=== PATIENT | female | born 1945 | race Caucasian/White ===

== ENCOUNTER → 2016-12-15 | Outpatient (CLI) | payer OTHER ==
[~2016-12-15] MED LIST: GADOBUTROL 10 ML VIAL IVP ONE
== END ==
LOC: FIMAGING 08:00
PROVIDERS: ATTEND Internal Medicine Gastroenterology
DX: K82.4 Cholesterolosis of gallbladder (principal); K86.2 Cyst of pancreas; D17.71 Benign lipomatous neoplasm of kidney
CPT/HCPCS: 74183; A9585

== ENCOUNTER → 2017-04-23 | Outpatient (CLI) | payer OTHER | LOC: FIMAGING 12:34 | PROVIDERS: ATTEND Internal Medicine | DX: Z13.820 Encounter for screening for osteoporosis (principal); M81.0 Age-related osteoporosis without current pathological fracture; Z78.0 Asymptomatic menopausal state; Z85.3 Personal history of malignant neoplasm of breast ==

== ENCOUNTER 2017-05-08 18:50 | Emergency (ER) | payer OTHER ==
--- NOTE | 2017-05-08 19:28 | CPEKG ---
Heart Rate: 81 RR Interval: 741 P-R Interval: 148 QRSD Interval: 96 QT Interval: 388 QTC Interval: 451 P Bronte: 74 QRS Bronte: 55 T Wave Bronte: 66 EKG Severity - ABNORMAL ECG - EKG Impression: SINUS RHYTHM EKG Impression: PROBABLE LEFT ATRIAL ABNORMALITY EKG Impression: ABNORMAL T, CONSIDER ISCHEMIA, ANTERIOR LEADS Electronically Signed By: Karie Sellers 08-May-2017 21:59:19
[2017-05-08] MEDS ORDERED: PROMETHAZINE HCL 25 MG/ML INJ IVP ONE (19:37)
[2017-05-08 19:42] LABS: % IMMATURE GRANULYOCYTES 0.2 % (0.0-1.1); ABSOLUTE IMMATURE GRANULOCYTES 0.01 10^3/uL (0.00-0.10); ADD DIFF? NO; ADD MORPH? NO; ADD SCAN? NO; ATYPICAL LYMPHOCYTE FLAG 0 (0-99); FRAGMENT RBC FLAG 0 (0-99); HEMOGLOBIN 14.9 g/dL (12.6-16.3); LEFT SHIFT FLG 0 (0-99); LIPEMIA HEMOLYSIS FLAG 90 (0-99); MEAN CELL HEMOGLOBIN 30.7 pg (27.9-34.1); MEAN CELL HEMOGLOBIN CONCENTR. 35.5 g/dL (32.4-36.7); MEAN CELL VOLUME 86.4 fL (81.5-99.8); MEAN PLATELET VOLUME 9.9 fL (8.7-11.7); PLATELET CLUMPS FLAG 0 (0-99); PLATELET COUNT 228 10^3/uL (150-400); RED BLOOD CELL COUNT 4.86 10^6/uL (4.18-5.33); RED CELL DISTRIBUTION WIDTH 12.8 % (11.5-15.2)
[2017-05-08 19:57] LABS: ALANINE AMINOTRANSFERASE 38 IU/L (9-52); ALKALINE PHOSPHATASE 59 IU/L (38-126); ANION GAP 11 mEq/L (8-16); ASPARTATE AMINOTRANSFERASE 26 IU/L (14-46); BILIRUBIN,TOTAL 0.6 mg/dL (0.1-1.4); BILIRUBIN-CONJUGATED 0.2 mg/dL (0.0-0.5); BILIRUBIN-UNCONJUGATED 0.4 mg/dL (0.0-1.1); CALCIUM 9.7 mg/dL (8.5-10.4); CARBON DIOXIDE 26 mEq/l (22-31); CHLORIDE 97 mEq/L (97-110); CREATININE 0.7 mg/dL (0.6-1.0); GLOMERULAR FILTRATION RATE > 60; GLUCOSE 128 mg/dL (70-100); POTASSIUM 3.5 mEq/L (3.5-5.2); SODIUM 134 mEq/L (134-144); TOTAL PROTEIN 6.5 g/dL (6.3-8.2)
[2017-05-08 20:07] LABS: TROPONIN I < 0.012 ng/mL (0.000-0.034)
[2017-05-08] MEDS ORDERED: METOCLOPRAMIDE 10 MG/2 ML VIAL IVP ONE (20:54)
[2017-05-08 21:15] VITALS: RESP 16
--- NOTE | 2017-05-08 21:48 | EDPHY ---
H & P Stated Complaint: nausea x 1 day, no pain, been taking ibu for dental work - Personal History Current Tetanus/Diphtheria Vaccine: Unsure Current Tetanus Diphtheria and Acellular Pertussis (TDAP): Unsure Tetanus Vaccine Date: 2011 - Medical/Surgical History Hx Asthma: No Hx Chronic Respiratory Disease: No Hx Diabetes: No Hx Cardiac Disease: Yes Hx Renal Disease: No Hx Cirrhosis: No Hx Alcoholism: No Hx HIV/AIDS: No Hx Splenectomy or Spleen Trauma: No Other PMH: PSH: BILAT MASTECTOMY,HYST. PMH: MIGRAINES,AFLUTTER WITH AFIB ablation, BREAST CA. trigeminal neuralgia - Social History Smoking Status: Never smoked Time Seen by Provider: 05/08/17 19:28 HPI/ROS: Chief complaint: Nausea History of present illness: This is a 72-year-old female who presents to the emergency department for evaluation of nausea. Patient believes this is secondary to the use of ibuprofen. Patient had dental work performed last week. 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 She states she believes this has made her extremely nauseated. She has used Zofran at home which has not resolved the problem. She denies associated signs or symptoms: No actual vomiting, no associated pain specifically no abdominal pain, no diarrhea or constipation, no reported bright red blood or dark stools, no fever. (Abilio Nova) - Physical Exam Exam: General Appearance: Alert, nontoxic. Eyes: Pupils equal and round no pallor or injection. ENT, Mouth: Mucous membranes moist. Respiratory: There are no retractions, lungs are clear to auscultation. Cardiovascular: Regular rate and rhythm. Gastrointestinal: Abdomen is soft and non tender, no masses, bowel sounds normal. Neurological: Alert and oriented. Strength and sensation intact and symmetrical. Skin: Warm and dry, no rashes. Musculoskeletal: Neck is supple non tender. Extremities are symmetrical, full range of motion. Psychiatric: Patient is oriented X 3, there is no agitation. (Abilio Nova) Constitutional: Initial Vital Signs Temperature (C) 37.3 C 05/08/17 18:54 Heart Rate 94 05/08/17 18:54 Respiratory Rate 18 05/08/17 18:54 Blood Pressure 179/101 H 05/08/17 18:54 O2 Sat (%) 95 05/08/17 18:54 O2 Delivery Mode Room Air Allergies/Adverse Reactions: hydrocodone bitartrate [From Vicodin] Allergy (Unknown, Verified 05/21/12 16:16) Vomiting cyclosporine [From Restasis] Allergy (Verified 02/22/16 11:13) fentanyl Allergy (Verified 07/01/14 15:44) Other-Enter Comments methylprednisolone Allergy (Verified 07/01/14 07:33) metoprolol Allergy (Verified 02/22/16 11:13) oxcarbazepine [From Trileptal] Allergy (Verified 02/22/16 11:13) tramadol Allergy (Verified 02/22/16 11:13) Home Medications: Medication Instructions Recorded Atorvastatin Calcium [Lipitor 10 10 mg PO HS 07/05/12 mg (*)] Dicyclomine [Bentyl 20 MG (*)] 20 mg PO QID PRN 07/05/12 Cholecalciferol Vit D3 [Vitamin D3 1,000 units PO DAILY 03/08/14 (*)] Azelaic Acid [Azelex] 1 hannah TP BID 06/14/14 ZOLMitriptan [Zomig 2.5MG (*)] 5 mg PO DAILY PRN 07/01/14 Apixaban [Eliquis] 5 mg PO BID #60 tab 07/04/14 Clonazepam 0.125 mg 02/22/16 Nexium 40 mg 02/22/16 Tylenol 500 mg 02/22/16 Medical Decision Making ED Course/Re-evaluation: Patient is discussed with my secondary supervising physician Dr. Karie Sellers. Patient presents to the emergency department for nausea. This is after using ibuprofen regularly after dental work. She is nontoxic. Afebrile and vital signs are stable. Abdominal exam is benign. Blood studies unremarkable. She initially treated with Phenergan and Reglan and reports improvement in symptoms. She is comfortable being discharged home. She is asked to follow up with her primary care doctor for recheck. She is asked to refrain from using ibuprofen or other NSAIDs. Return precautions are given. Patient voiced understanding and agreement with plan. (Abilio Nova) The patient was evaluated and managed by the physician senior administrative assistant. I have reviewed this chart and I agree with the findings and plan of care as documented , as indicated by my signature. I am the secondary supervising physician. ( Karie Sellers) - Data Points Laboratory Results: Laboratory Results 05/08/17 19:30 05/08/17 19:30 Medications Given: Discontinued Medications Metoclopramide HCl (Reglan Injection) 5 mg IVP EDNOW ONE Stop: 05/08/17 20:55 Last Admin: 05/08/17 21:06 Dose: 5 mg Promethazine HCl (Phenergan) 6.25 mg IVP EDNOW ONE Stop: 05/08/17 19:38 Last Admin: 05/08/17 19:48 Dose: 6.25 mg Departure - Departure Disposition: Home, Routine, Self-Care Clinical Impression: Nausea Condition: Good Instructions: Acute Nausea and Vomiting (ED) Additional Instructions: Follow-up with her primary care doctor this week for recheck Discontinue the use of ibuprofen If symptoms worsen or new symptoms develop return to the emergency room for recheck Referrals: Carlos Trujillo MD [Primary Care Provider] - As per Instructions
[2017-05-08 22:11] VITALS: BP 131/74; PULSE 69; TEMP 97.9; O2SAT 96
== END 2017-05-08 22:11 | disposition home or self-care (01) ==
DX: R11.0 Nausea (principal); Z85.3 Personal history of malignant neoplasm of breast
CPT/HCPCS: 93005; 96374; 96375; 99284; J2550; J2765

== ENCOUNTER → 2017-11-11 | Outpatient (CLI) | payer OTHER | LOC: BHLMT 13:15 | PROVIDERS: ATTEND Internal Medicine Interventional Cardiology | DX: R07.9 Chest pain, unspecified (principal) | CPT/HCPCS: 93017-PO; 93350-PO ==

== ENCOUNTER → 2017-12-17 | Outpatient (CLI) | payer OTHER | LOC: FIMAGING 07:56 | PROVIDERS: ATTEND Internal Medicine Gastroenterology | DX: K82.4 Cholesterolosis of gallbladder (principal); D30.01 Benign neoplasm of right kidney; K86.2 Cyst of pancreas ==

== ENCOUNTER 2018-02-15 22:38 | Emergency (ER) | payer OTHER ==
[2018-02-15] MEDS ORDERED: NS 1,000 ML IV ONE (23:02)
[2018-02-15] MEDS ORDERED: METOCLOPRAMIDE 10 MG/2 ML VIAL IVP ONE (23:03)
--- NOTE | 2018-02-15 23:05 | EDPHY ---
H & P Stated Complaint: pos reaction to Bactrim, nausea since this AM Time Seen by Provider: 02/15/18 22:53 HPI/ROS: Chief Complaint: Nausea, shaking HPI: 72-year-old woman was diagnosed with a urinary tract infection at urgent care this morning and started on Bactrim. Patient states she has been having urinary urgency and frequency for the last 2 days. Patient states that after she took her 1st dose of Bactrim this morning she felt nauseated and a little shaky. She did take some Zofran this afternoon with some relief. She did take her 2nd dose of Bactrim tonight and afterwards began feeling again quite shaky and nauseated. No fevers or chills. She did take a 2nd dose of Zofran at 9:30 a.m.. She does have a history of intolerance to a lot of medications in the past. No vomiting. No chest pain or shortness of breath. No palpitations. Is complaining of a mild headache. She has had similar reactions to other medications. ROS: 10 point Review of Systems is negative except as noted in the HPI. Social History: No smoking, no alcohol, no recreational drug use Family History: non-contributory Physical Exam: Vital signs: Heart rate 99, blood pressure 145/95, respiratory 18, oxygen saturations 94%, temperature 36.8 Gen: Awake, Alert, No Distress HEENT: Nose: no rhinorrhea Eyes: PERRLA, EOMI Mouth: Moist mucosa Neck: Supple, no JVD Chest: nontender, lungs clear to auscultation Heart: S1, S2 normal, no murmur Abd: Soft, non-tender, no guarding Back: no CVA tenderness, no midline tenderness Ext: no edema, non-tender Skin: no rash Neuro: CN II-XII intact, Sensation grossly intact, Strength 5/5 in bilateral upper and lower extremities - Personal History Current Tetanus/Diphtheria Vaccine: Yes Tetanus Vaccine Date: 2011 - Medical/Surgical History Hx Asthma: No Hx Chronic Respiratory Disease: No Hx Diabetes: No Hx Cardiac Disease: Yes Hx Renal Disease: No Hx Cirrhosis: No Hx Alcoholism: No Hx HIV/AIDS: No Hx Splenectomy or Spleen Trauma: No Other PMH: PSH: BILAT MASTECTOMY,HYST. PMH: MIGRAINES,AFLUTTER WITH AFIB ablation, BREAST CA. trigeminal neuralgia - Social History Smoking Status: Never smoked Constitutional: Initial Vital Signs Temperature (C) 36.8 C 02/15/18 22:41 Heart Rate 99 02/15/18 22:41 Respiratory Rate 18 02/15/18 22:41 Blood Pressure 145/95 H 02/15/18 22:41 O2 Sat (%) 94 02/15/18 22:41 O2 Delivery Mode Room Air Allergies/Adverse Reactions: hydrocodone bitartrate [From Vicodin] Allergy (Unknown, Verified 02/15/18 22:45) Vomiting cyclosporine [From Restasis] Allergy (Verified 02/15/18 22:45) fentanyl Allergy (Verified 02/15/18 22:45) Other-Enter Comments methylprednisolone Allergy (Verified 02/15/18 22:45) metoprolol Allergy (Verified 02/15/18 22:45) oxcarbazepine [From Trileptal] Allergy (Verified 02/15/18 22:45) tramadol Allergy (Verified 02/15/18 22:45) Home Medications: Medication Instructions Recorded Atorvastatin Calcium [Lipitor 10 10 mg PO HS 07/05/12 mg (*)] Dicyclomine [Bentyl 20 MG (*)] 20 mg PO QID PRN 07/05/12 Cholecalciferol Vit D3 [Vitamin D3 1,000 units PO DAILY 03/08/14 (*)] Azelaic Acid [Azelex] 1 hannah TP BID 06/14/14 ZOLMitriptan [Zomig 2.5MG (*)] 5 mg PO DAILY PRN 07/01/14 Apixaban [Eliquis] 5 mg PO BID #60 tab 07/04/14 Nexium 40 mg 02/22/16 Tylenol 500 mg 02/22/16 Cephalexin [Keflex (*)] 500 mg PO Q6H #20 cap 02/16/18 Medical Decision Making ED Course/Re-evaluation: Patient's condition has not changed. She does not wish to stay in the emergency depart for further evaluation. CBC is not come back yet but she does not wish to wait. She is afebrile. She has a benign exam. Symptoms are consistent with medication intolerance. She has been encouraged to return for any concerns. I will switch her to Keflex. She will otherwise follow up with primary care physician. - Data Points Laboratory Results: Laboratory Results 02/15/18 23:10 02/15/18 23:10 02/15/18 02/15/18 23:10 23:10 WBC REJ RBC TNP Hgb TNP Hct TNP MCV TNP MCH TNP MCHC TNP RDW TNP Plt Count TNP MPV TNP Neut % (Auto) TNP Lymph % (Auto) TNP Roberts % (Auto) TNP Eos % (Auto) TNP Baso % (Auto) TNP Nucleat RBC Rel Count TNP Absolute Neuts (auto) TNP Absolute Lymphs (auto) TNP Absolute Monos (auto) TNP Absolute Eos (auto) TNP Absolute Basos (auto) TNP Absolute Nucleated RBC TNP Immature Gran % TNP Immature Gran # TNP Sodium 128 mEq/L L mEq/L (135-145) Potassium 3.4 mEq/L mEq/L (3.3-5.0) Chloride 92 mEq/L L mEq/L (97-110) Carbon Dioxide 23 mEq/l mEq/l (22-31) Anion Gap 13 mEq/L mEq/L (8-16) BUN 12 mg/dL mg/dL (7-23) Creatinine 0.5 mg/dL L mg/dL (0.6-1.0) Estimated GFR > 60 Glucose 137 mg/dL H mg/dL (70-100) Calcium 9.0 mg/dL mg/dL (8.5-10.4) Medications Given: Discontinued Medications Sodium Chloride (Ns) 1,000 mls @ 0 mls/hr IV ONCE ONE; Wide Open PRN Reason: Protocol Stop: 02/15/18 23:03 Last Admin: 02/15/18 23:24 Dose: 1,000 mls Metoclopramide HCl (Reglan Injection) 10 mg IVP EDNOW ONE Stop: 02/15/18 23:04 Last Admin: 02/15/18 23:24 Dose: 10 mg Departure - Departure Disposition: Home, Routine, Self-Care Clinical Impression: Hyponatremia, UTI (urinary tract infection) Condition: Good Instructions: Urinary Tract Infection in Women (ED), Hyponatremia (ED) Additional Instructions: Follow up with her primary care physician in 2-3 days for further evaluation. Return to the emergency department for increasing nausea, vomiting, abdominal pain, fevers, chills, confusion, or any other concerns. Referrals: Carlos Trujillo MD [Primary Care Provider] - As per Instructions Prescriptions: Cephalexin [Keflex (*)] 500 mg PO Q6H #20 cap
[2018-02-16 00:38] VITALS: BP 128/82
== END 2018-02-16 00:39 | disposition home or self-care (01) ==
DX: N39.0 Urinary tract infection, site not specified (principal); E87.1 Hypo-osmolality and hyponatremia; E86.9 Volume depletion, unspecified; Z85.3 Personal history of malignant neoplasm of breast
CPT/HCPCS: 96361; 96374; 99284; J2765

== ENCOUNTER 2018-12-20 15:42 | Emergency (ER) | payer OTHER | END 2018-12-20 16:52 | disposition home or self-care (01) ==